=== PATIENT | male | born 1990 | race Two or more races ===

== ENCOUNTER → 2019-02-03 | Outpatient (CLI) | payer OTHER ==
--- NOTE | 2019-02-03 13:32 | RADIOLOGY REPORT (SQ) ---
EXAM DESCRIPTION: DUPLEX ART/OSWALDO FLOW COMPLETE COMPLETED DATE/TIME: 02/03/2019 10:47 am REASON FOR STUDY: MARIYA (I70.1) COMPARISON: None. TECHNIQUE: Realtime and static grayscale images acquired. Selected color Doppler, velocities and spe ctral images recorded. LIMITATIONS: Large body habitus, difficult to visualize the renal artery origins off the aorta FINDINGS: RIGHT KIDNEY: RENAL ARTERY VELOCITIES: At the hilum, 119 cm/sec. Segmental artery velocity 77 cm/sec. RENAL VEIN: Color doppler flow present, patent. VELOCITY RATIO: Normal. Normal waveforms. KIDNEY: Right kidney is 10 cm in length with normal cortical thickness and echogenicity. No signif icant pathology. LEFT KIDNEY: RENAL ARTERY VELOCITIES: At the hilum, 87 cm/sec. Segmental artery velocity 59 cm/sec. RENAL VEIN: Color doppler flow present, patent. VELOCITY RATIO: Normal. Normal waveforms. KIDNEY: Left kidney is 12.4 cm in length with normal cortical thickness and echogenicity. No signi ficant pathology. BLADDER: Normal. OTHER: No other significant finding. IMPRESSION: NO DOPPLER EVIDENCE OF HEMODYNAMICALLY SIGNIFICANT RENAL ARTERY STENOSIS. COMMENT: NORMAL RENAL ARTERY/AORTA VELOCITY RATIO IS LESS THAN OR EQUAL TO 3.5. TECHNICAL DOCUMENTATION: JOB ID: [id number] [employer]- All Rights Reserved Reading location - IP/workstation name: [email or web address]
== END ==
LOC: RAD 08:57
PROVIDERS: ATTEND Internal Medicine Clinical Cardiac Electrophysiology
DX: I70.1 Atherosclerosis of renal artery (principal)
CPT/HCPCS: 93975